=== PATIENT | male | born 1970 | race Caucasian/White ===

== ENCOUNTER 2018-10-28 17:33 | Inpatient (IN) | payer OTHER ==
[2018-10-28] MEDS ORDERED: NACL 0.9% 3 ML SYG IV (18:30)
[2018-10-28] MEDS ORDERED: ONDANSETRON 4 MG INJ IV (18:30)
[2018-10-28] MEDS ORDERED: ACETAMINOPHEN 325 MG TAB PO (18:30)
[2018-10-28] MEDS: PIPER-TAZO 3.375 GM IV (PMX) 100 ML IVPB (18:46)
[2018-10-28] MEDS ORDERED: GLUCOSE GEL 15 GRAM TUBE BUCCAL (19:00)
[2018-10-28] MEDS ORDERED: GLUCOSE GEL 15 GRAM TUBE PO ×2 (19:00)
[2018-10-28] MEDS ORDERED: DEXTROSE 50% 50 ML SYRINGE IV ×2 (19:00)
[2018-10-28] MEDS ORDERED: VANCOMYCIN IV PER PHARMACY XX (19:00)
[2018-10-28] MEDS ORDERED: ALBUTEROL/IPRATROPIUM (NEB) 3 ML AMP HHN (19:00)
[2018-10-28] MEDS ORDERED: GLUCAGON 1 MG INJ IM (19:00)
[2018-10-28] MEDS: morphine 4 MG/ML VIAL IV (20:18)
[2018-10-28] MEDS: VANCOMYCIN 2 GM in SOD CHLORIDE 0.9% 500 ML IVPB (20:45)
[2018-10-28] MEDS: ATORVASTATIN 40 MG TAB PO (20:45)
[2018-10-28] MEDS: ZIPRASIDONE 20 MG CAP PO (20:45)
[2018-10-28] MEDS: NICOTINE (21 MG/24 HR) PATCH TRANSDERM (22:12)
[2018-10-28] MEDS: INSULIN ASPART [NOVOLOG] 3 ML PEN SC (22:17)
[2018-10-28] MEDS: INSULIN GLARGINE [LANTus] (100 UNITS/ML) SYG SC (22:18)
[2018-10-29] MEDS: PIPER-TAZO 3.375 GM IV (PMX) 100 ML IVPB ×4 (00:31→17:27)
[2018-10-29] MEDS: ACCU-CHEK XX (02:00)
[2018-10-29 06:03] LABS: ADD MAN DIFF? NO
[2018-10-29 06:21] LABS: WHITE BLOOD COUNT 7.4 10^3/ul (4.8-10.8)
[2018-10-29 06:21] LABS: BASOPHIL # 0.1 10^3/ul (0.0-0.1); BASOPHILS % 1.2 % (0.0-2.0); EOSINOPHILS # 0.2 10^3/ul (0.0-0.5); EOSINOPHILS % 3.3 % (0.0-7.0); HEMATOCRIT 42.3 % (42.0-52.0); HEMOGLOBIN 13.1 g/dl (14.0-18.0); LYMPHOCYTES # 2.5 10^3/ul (0.8-2.9); LYMPHOCYTES % 34.3 % (15.0-51.0); MEAN PLATELET VOLUME 9.5 fl (7.4-10.4); MONOCYTE # 0.6 10^3/ul (0.3-0.9); MONOCYTES % 7.6 % (0.0-11.0); NEUTROPHIL # 3.8 10^3/ul (1.6-7.5); NEUTROPHILS % 51.7 % (39.0-77.0); PLATELET COUNT 341 10^3/UL (140-415); RED BLOOD COUNT 4.86 10^6/ul (4.70-6.10); RED CELL DISTRIBUTION WIDTH 13.9 % (11.5-14.5)
[2018-10-29 06:51] LABS: ALANINE AMINOTRANSFERASE 20 IU/L (13-69); ALBUMIN 3.5 g/dl (3.3-4.9); ALBUMIN/GLOBULIN RATIO 1.06; ALKALINE PHOSPHATASE 117 IU/L (42-121); ANION GAP 7 (5-13); ASPARTATE AMINO TRANSFERASE 21 IU/L (15-46); BILIRUBIN,INDIRECT 0.2 mg/dl (0-1.1); BILIRUBIN,TOTAL 0.2 mg/dl (0.2-1.3); BLOOD UREA NITROGEN 29 mg/dl (7-20); CALCIUM 9.3 mg/dl (8.4-10.2); CARBON DIOXIDE 39 mmol/L (21-31); CHLORIDE 92 mmol/L (97-110); CHOLESTEROL 163 mg/dl (100-200); CREATININE 1.28 mg/dl (0.61-1.24); Estimated GFR 60 mL/min (>60); GLUCOSE 316 mg/dl (70-220); HDL CHOLESTEROL 27 mg/dl (27-67); LDL CHOLESTEROL,CALCULATED 70 mg/dl; MAGNESIUM 1.8 mg/dl (1.7-2.5); PHOSPHORUS 5.8 mg/dl (2.5-4.9); POTASSIUM 4.9 mmol/L (3.5-5.1); SODIUM 138 mmol/L (135-144); TOTAL PROTEIN 6.8 g/dl (6.1-8.1); TRIGLYCERIDES 332 mg/dl (0-149)
[2018-10-29 07:06] LABS: HEMOGLOBIN A1C 13.4 % (0-5.9)
[2018-10-29] MEDS: INSULIN ASPART [NOVOLOG] 3 ML PEN SC ×5 (08:26→20:37)
[2018-10-29] MEDS: ENOXAPARIN 30 MG/0.3 ML SYG SC (08:27)
[2018-10-29] MEDS: INSULIN GLARGINE [LANTus] (100 UNITS/ML) SYG SC ×2 (08:27→20:38)
[2018-10-29] MEDS: TIOTROPIUM 18 MCG CAPSULE INHA DEV INH (08:28)
[2018-10-29] MEDS: LOSARTAN 50 MG TAB PO (08:28)
[2018-10-29] MEDS: NICOTINE (21 MG/24 HR) PATCH TRANSDERM (08:29)
[2018-10-29] MEDS: ZIPRASIDONE 20 MG CAP PO ×2 (08:31→20:34)
[2018-10-29] MEDS: VANCOMYCIN 2 GM in SOD CHLORIDE 0.9% 500 ML IVPB ×2 (08:31→20:32)
[2018-10-29] MEDS: SODIUM HYPOCHLORITE (1/40) 1 APPLIC BTL IRR (08:48)
[2018-10-29] MEDS: INFLUENZA VIRUS VACCINE 0.5 ML (DISPENSING) IM* (09:00)
[2018-10-29] MEDS: HYDROCHLOROTHIAZIDE 12.5 MG CAP PO (09:27)
[2018-10-29] MEDS ORDERED: GUAIFENESIN 20 MG/ML 5ML CUP PO (11:30)
[2018-10-29 13:28] LABS: C-REACTIVE PROTEIN < 0.5 mg/dl (0.0-0.9)
[2018-10-29 14:19] LABS: ERYTHROCYTE SEDIMENTATION RATE 32 mm/Hr (0-15)
[2018-10-29] MEDS: ATORVASTATIN 40 MG TAB PO (20:33)
[2018-10-30] MEDS: PIPER-TAZO 3.375 GM IV (PMX) 100 ML IVPB ×5 (00:11→23:24)
[2018-10-30] MEDS: ACCU-CHEK XX (02:14)
[2018-10-30 05:12] LABS: ADD MAN DIFF? NO
[2018-10-30 05:16] LABS: WHITE BLOOD COUNT 8.6 10^3/ul (4.8-10.8)
[2018-10-30 05:16] LABS: BASOPHIL # 0.1 10^3/ul (0.0-0.1); BASOPHILS % 1.4 % (0.0-2.0); EOSINOPHILS # 0.4 10^3/ul (0.0-0.5); EOSINOPHILS % 4.1 % (0.0-7.0); HEMATOCRIT 43.4 % (42.0-52.0); HEMOGLOBIN 13.7 g/dl (14.0-18.0); LYMPHOCYTES # 3.1 10^3/ul (0.8-2.9); LYMPHOCYTES % 35.5 % (15.0-51.0); MEAN CORPUSCULAR HEMOGLOBIN 27.2 pg (29.0-33.0); MEAN CORPUSCULAR HGB CONC 31.6 g/dl (32.0-37.0); MEAN CORPUSCULAR VOLUME 86.1 fl (82.0-101.0); MEAN PLATELET VOLUME 9.4 fl (7.4-10.4); MONOCYTE # 0.7 10^3/ul (0.3-0.9); NEUTROPHIL # 4.2 10^3/ul (1.6-7.5); NEUTROPHILS % 48.1 % (39.0-77.0); PLATELET COUNT 334 10^3/UL (140-415); RED BLOOD COUNT 5.04 10^6/ul (4.70-6.10); RED CELL DISTRIBUTION WIDTH 14.3 % (11.5-14.5)
[2018-10-30 05:48] LABS: ANION GAP 8 (5-13); BLOOD UREA NITROGEN 22 mg/dl (7-20); CALCIUM 9.3 mg/dl (8.4-10.2); CARBON DIOXIDE 37 mmol/L (21-31); CHLORIDE 97 mmol/L (97-110); CREATININE 1.26 mg/dl (0.61-1.24); Estimated GFR > 60 mL/min (>60); GLUCOSE 135 mg/dl (70-220); MAGNESIUM 1.9 mg/dl (1.7-2.5); PHOSPHORUS 5.3 mg/dl (2.5-4.9); POTASSIUM 4.5 mmol/L (3.5-5.1); SODIUM 142 mmol/L (135-144)
[2018-10-30 07:50] LABS: VANCOMYCIN,TROUGH 22.2 ug/ml (10.0-20.0)
[2018-10-30] MEDS: INSULIN ASPART [NOVOLOG] 3 ML PEN SC ×7 (08:33→21:27)
[2018-10-30] MEDS: NICOTINE (21 MG/24 HR) PATCH TRANSDERM (08:50)
[2018-10-30] MEDS: TIOTROPIUM 18 MCG CAPSULE INHA DEV INH (08:51)
[2018-10-30] MEDS: HYDROCHLOROTHIAZIDE 12.5 MG CAP PO (08:55)
[2018-10-30] MEDS: LOSARTAN 50 MG TAB PO (08:55)
[2018-10-30] MEDS: SODIUM HYPOCHLORITE (1/40) 1 APPLIC BTL IRR (08:57)
[2018-10-30] MEDS: ZIPRASIDONE 20 MG CAP PO ×3 (09:00→21:28)
[2018-10-30] MEDS: INSULIN GLARGINE [LANTus] (100 UNITS/ML) SYG SC ×2 (09:16→21:24)
[2018-10-30] MEDS: ENOXAPARIN 30 MG/0.3 ML SYG SC (09:16)
[2018-10-30] MEDS: VANCOMYCIN 1.25 GM in SOD CHLORIDE 0.9% 250 ML IVPB (18:36)
[2018-10-30] MEDS: ATORVASTATIN 40 MG TAB PO (21:37)
[2018-10-31] MEDS: ACCU-CHEK XX ×2 (02:00→21:41)
[2018-10-31] MEDS: HYDROCODONE/APAP (5/325) TAB PO ×2 (02:20→02:23)
[2018-10-31] MEDS: PIPER-TAZO 3.375 GM IV (PMX) 100 ML IVPB ×3 (05:42→17:31)
[2018-10-31 06:13] LABS: ADD MAN DIFF? NO
[2018-10-31 06:19] LABS: BASOPHIL # 0.1 10^3/ul (0.0-0.1); BASOPHILS % 1.2 % (0.0-2.0); EOSINOPHILS # 0.3 10^3/ul (0.0-0.5); EOSINOPHILS % 3.4 % (0.0-7.0); HEMATOCRIT 45.3 % (42.0-52.0); HEMOGLOBIN 13.9 g/dl (14.0-18.0); LYMPHOCYTES % 34.9 % (15.0-51.0); MEAN CORPUSCULAR HEMOGLOBIN 27.2 pg (29.0-33.0); MEAN CORPUSCULAR HGB CONC 30.7 g/dl (32.0-37.0); MEAN CORPUSCULAR VOLUME 88.6 fl (82.0-101.0); MEAN PLATELET VOLUME 9.4 fl (7.4-10.4); MONOCYTE # 0.7 10^3/ul (0.3-0.9); MONOCYTES % 7.8 % (0.0-11.0); NEUTROPHIL # 4.4 10^3/ul (1.6-7.5); NEUTROPHILS % 50.8 % (39.0-77.0); PLATELET COUNT 364 10^3/UL (140-415); RED BLOOD COUNT 5.11 10^6/ul (4.70-6.10); RED CELL DISTRIBUTION WIDTH 14.1 % (11.5-14.5)
[2018-10-31 06:19] LABS: WHITE BLOOD COUNT 8.6 10^3/ul (4.8-10.8)
[2018-10-31] MEDS: VANCOMYCIN 1.25 GM in SOD CHLORIDE 0.9% 250 ML IVPB ×2 (06:49→17:31)
[2018-10-31 06:57] LABS: BLOOD UREA NITROGEN 20 mg/dl (7-20); Estimated GFR 59 mL/min (>60); GLUCOSE 200 mg/dl (70-220); POTASSIUM 4.4 mmol/L (3.5-5.1)
[2018-10-31 07:27] LABS: ANION GAP 6 (5-13); CALCIUM 9.4 mg/dl (8.4-10.2); CARBON DIOXIDE 32 mmol/L (21-31); CHLORIDE 102 mmol/L (97-110); SODIUM 140 mmol/L (135-144)
[2018-10-31] MEDS: INSULIN ASPART [NOVOLOG] 3 ML PEN SC ×7 (08:29→21:00)
[2018-10-31] MEDS: INSULIN GLARGINE [LANTus] (100 UNITS/ML) SYG SC ×2 (08:30→21:38)
[2018-10-31] MEDS: ZIPRASIDONE 20 MG CAP PO ×2 (09:00→21:00)
[2018-10-31] MEDS: SODIUM HYPOCHLORITE (1/40) 1 APPLIC BTL IRR (09:00)
[2018-10-31] MEDS: NICOTINE (21 MG/24 HR) PATCH TRANSDERM (09:42)
[2018-10-31] MEDS: ENOXAPARIN 30 MG/0.3 ML SYG SC (09:42)
[2018-10-31] MEDS: LOSARTAN 50 MG TAB PO (09:48)
[2018-10-31] MEDS: HYDROCHLOROTHIAZIDE 12.5 MG CAP PO (09:49)
[2018-10-31] MEDS: TIOTROPIUM 18 MCG CAPSULE INHA DEV INH (09:52)
[2018-10-31] MEDS: ATORVASTATIN 40 MG TAB PO (21:00)
[2018-11-01] MEDS: PIPER-TAZO 3.375 GM IV (PMX) 100 ML IVPB ×3 (00:18→12:28)
[2018-11-01 06:38] LABS: ADD MAN DIFF? NO
[2018-11-01 06:45] LABS: BASOPHIL # 0.1 10^3/ul (0.0-0.1); BASOPHILS % 0.9 % (0.0-2.0); EOSINOPHILS # 0.3 10^3/ul (0.0-0.5); EOSINOPHILS % 3.3 % (0.0-7.0); HEMATOCRIT 43.8 % (42.0-52.0); HEMOGLOBIN 13.8 g/dl (14.0-18.0); LYMPHOCYTES # 2.6 10^3/ul (0.8-2.9); LYMPHOCYTES % 31.3 % (15.0-51.0); MEAN CORPUSCULAR HEMOGLOBIN 27.4 pg (29.0-33.0); MEAN CORPUSCULAR HGB CONC 31.5 g/dl (32.0-37.0); MEAN CORPUSCULAR VOLUME 86.9 fl (82.0-101.0); MEAN PLATELET VOLUME 9.4 fl (7.4-10.4); MONOCYTE # 0.6 10^3/ul (0.3-0.9); MONOCYTES % 7.3 % (0.0-11.0); NEUTROPHIL # 4.6 10^3/ul (1.6-7.5); NEUTROPHILS % 55.4 % (39.0-77.0); PLATELET COUNT 331 10^3/UL (140-415); RED BLOOD COUNT 5.04 10^6/ul (4.70-6.10); RED CELL DISTRIBUTION WIDTH 14.5 % (11.5-14.5)
[2018-11-01 06:45] LABS: WHITE BLOOD COUNT 8.2 10^3/ul (4.8-10.8)
[2018-11-01 07:16] LABS: ANION GAP 6 (5-13); BLOOD UREA NITROGEN 17 mg/dl (7-20); CALCIUM 9.4 mg/dl (8.4-10.2); CARBON DIOXIDE 36 mmol/L (21-31); CHLORIDE 101 mmol/L (97-110); CREATININE 1.32 mg/dl (0.61-1.24); Estimated GFR 58 mL/min (>60); GLUCOSE 115 mg/dl (70-220); MAGNESIUM 1.9 mg/dl (1.7-2.5); PHOSPHORUS 5.2 mg/dl (2.5-4.9); POTASSIUM 4.7 mmol/L (3.5-5.1); SODIUM 143 mmol/L (135-144)
[2018-11-01] MEDS: INSULIN ASPART [NOVOLOG] 3 ML PEN SC ×4 (08:00→12:32)
[2018-11-01] MEDS: SODIUM HYPOCHLORITE (1/40) 1 APPLIC BTL IRR (08:25)
[2018-11-01] MEDS: TIOTROPIUM 18 MCG CAPSULE INHA DEV INH (08:27)
[2018-11-01] MEDS: HYDROCHLOROTHIAZIDE 12.5 MG CAP PO (08:28)
[2018-11-01] MEDS: LOSARTAN 50 MG TAB PO (08:28)
[2018-11-01] MEDS: NICOTINE (21 MG/24 HR) PATCH TRANSDERM (08:29)
[2018-11-01] MEDS: INSULIN GLARGINE [LANTus] (100 UNITS/ML) SYG SC (08:30)
[2018-11-01] MEDS: ENOXAPARIN 30 MG/0.3 ML SYG SC (08:31)
[2018-11-01] MEDS: ZIPRASIDONE 20 MG CAP PO (08:31)
[2018-11-01] MEDS: VANCOMYCIN 1.25 GM in SOD CHLORIDE 0.9% 250 ML IVPB (10:21)
[2018-11-01] MEDS ORDERED: VANCOMYCIN 1.25 GM in SOD CHLORIDE 0.9% 250 ML IVPB (23:00)
== END 2018-11-01 16:10 | disposition home or self-care (01) | DRG 623 ==
LOC: 2NE 17:33
PROVIDERS: Internal Medicine
PROC: 0JBQ0ZZ Excision of Right Foot Subcutaneous Tissue and Fascia, Open Approach (ICD-10-PCS; principal; 2018-10-28)
PROC: 0JBR0ZZ Excision of Left Foot Subcutaneous Tissue and Fascia, Open Approach (ICD-10-PCS; 2018-10-28)
DX: E11.621 Type 2 diabetes mellitus with foot ulcer (principal); L03.115 Cellulitis of right lower limb; R05 Cough; E11.65 Type 2 diabetes mellitus with hyperglycemia; I10 Essential (primary) hypertension; F20.9 Schizophrenia, unspecified; F17.200 Nicotine dependence, unspecified, uncomplicated; J44.9 Chronic obstructive pulmonary disease, unspecified; B35.1 Tinea unguium; E11.42 Type 2 diabetes mellitus with diabetic polyneuropathy; Z89.411 Acquired absence of right great toe; Z89.422 Acquired absence of other left toe(s)
CPT/HCPCS: 71045; 73630; 73630-LT; 80048; 80053; 80061; 80202; 82962; 83036; 83735; 84100; 84443; 85025; 85651; 86140; 87040; 87070; 87081; 93922; 93970

== ENCOUNTER 2019-06-23 11:05 | Inpatient (IN) | payer OTHER ==
[2019-06-23 12:08] LABS: ADD MAN DIFF? NO
[2019-06-23] MEDS: SODIUM CHLORIDE 0.9% 1L BAG IV* (12:12)
[2019-06-23 12:19] LABS: WHITE BLOOD COUNT 6.9 10^3/ul (4.8-10.8)
[2019-06-23 12:19] LABS: BASOPHIL # 0.1 10^3/ul (0.0-0.1); EOSINOPHILS # 0.2 10^3/ul (0.0-0.5); EOSINOPHILS % 2.8 % (0.0-7.0); HEMATOCRIT 41.7 % (42.0-52.0); HEMOGLOBIN 13.1 g/dl (14.0-18.0); LYMPHOCYTES # 2.1 10^3/ul (0.8-2.9); LYMPHOCYTES % 30.2 % (15.0-51.0); MEAN CORPUSCULAR HEMOGLOBIN 26.4 pg (29.0-33.0); MEAN CORPUSCULAR HGB CONC 31.4 g/dl (32.0-37.0); MEAN CORPUSCULAR VOLUME 84.1 fl (82.0-101.0); MEAN PLATELET VOLUME 9.7 fl (7.4-10.4); MONOCYTE # 0.5 10^3/ul (0.3-0.9); MONOCYTES % 7.1 % (0.0-11.0); NEUTROPHILS % 58.2 % (39.0-77.0); PLATELET COUNT 305 10^3/UL (140-415); RED BLOOD COUNT 4.96 10^6/ul (4.70-6.10); RED CELL DISTRIBUTION WIDTH 13.4 % (11.5-14.5)
[2019-06-23 12:29] LABS: INR 0.88; PT RATIO 0.9
[2019-06-23 12:30] LABS: PARTIAL THROMBOPLASTIN TIME 24.6 Sec (23.0-35.0)
[2019-06-23 12:49] LABS: ALANINE AMINOTRANSFERASE 23 IU/L (13-69); ALBUMIN 3.8 g/dl (3.3-4.9); ALBUMIN/GLOBULIN RATIO 1.11; ALKALINE PHOSPHATASE 123 IU/L (42-121); ANION GAP 10 (5-13); ASPARTATE AMINO TRANSFERASE 21 IU/L (15-46); BILIRUBIN,INDIRECT 0.4 mg/dl (0-1.1); BILIRUBIN,TOTAL 0.4 mg/dl (0.2-1.3); BLOOD UREA NITROGEN 28 mg/dl (7-20); C-REACTIVE PROTEIN 0.8 mg/dl (0.0-0.9); CALCIUM 9.5 mg/dl (8.4-10.2); CARBON DIOXIDE 31 mmol/L (21-31); CHLORIDE 91 mmol/L (97-110); CREATININE 0.99 mg/dl (0.61-1.24); Estimated GFR > 60 mL/min (>60); SODIUM 132 mmol/L (135-144); TOTAL PROTEIN 7.2 g/dl (6.1-8.1)
[2019-06-23 12:50] LABS: GLUCOSE 472 mg/dl (70-220)
[2019-06-23 12:55] LABS: TROPONIN-I < 0.012 ng/ml (0.000-0.120)
[2019-06-23 13:35] LABS: ERYTHROCYTE SEDIMENTATION RATE 41 mm/Hr (0-15)
[2019-06-23] MEDS: PIPER-TAZO 3.375 GM IV (PMX) 100 ML IVPB ×2 (13:58→20:37)
[2019-06-23] MEDS ORDERED: ONDANSETRON 4 MG INJ IV ×2 (14:00→16:00)
[2019-06-23] MEDS ORDERED: ACETAMINOPHEN 325 MG TAB PO (14:00)
[2019-06-23 14:24] LABS: ADD UMIC NO; UR ASCORBIC ACID NEGATIVE (NEGATIVE); UR BILIRUBIN (Dip) NEGATIVE (NEGATIVE); UR BLOOD (Dip) NEGATIVE (NEGATIVE); UR CLARITY CLEAR (CLEAR); UR COLOR STRAW (YELLOW); UR GLUCOSE (Dip) 3+ mg/dL (NEGATIVE); UR KETONES (Dip) NEGATIVE (NEGATIVE); UR LEUKOCYTE ESTERASE (Dip) NEGATIVE Leu/ul (NEGATIVE); UR NITRITE (Dip) NEGATIVE (NEGATIVE); UR SPECIFIC GRAVITY (Dip) 1.024 (1.003-1.030); UR TOTAL PROTEIN (Dip) NEGATIVE (NEGATIVE); UR UROBILINOGEN (Dip) NEGATIVE (NEGATIVE)
[2019-06-23 14:26] LABS: LACTIC ACID 1.7 mmol/L (0.5-2.0)
[2019-06-23] MEDS ORDERED: GLUCOSE GEL 15 GRAM TUBE PO ×4 (14:30→16:00)
[2019-06-23] MEDS: ACCU-CHEK XX (14:30)
[2019-06-23] MEDS ORDERED: GLUCOSE GEL 15 GRAM TUBE BUCCAL ×2 (14:30→16:00)
[2019-06-23] MEDS ORDERED: DEXTROSE 50% 50 ML SYRINGE IV ×4 (14:30→16:00)
[2019-06-23] MEDS ORDERED: GLUCAGON 1 MG INJ IM ×2 (14:30→16:00)
[2019-06-23] MEDS: VANCOMYCIN 1 GM (PMX) 250 ML IVPB (14:42)
[2019-06-23] MEDS: INSULIN ASPART [NOVOLOG] 3 ML PEN SC ×2 (15:09→21:39)
[2019-06-23] MEDS ORDERED: NACL 0.9% 3 ML SYG IV (16:00)
[2019-06-23 16:40] LABS: LACTIC ACID 2.4 mmol/L (0.5-2.0)
[2019-06-23] MEDS: NICOTINE (21 MG/24 HR) PATCH TRANSDERM (17:55)
[2019-06-23] MEDS: ATORVASTATIN 40 MG TAB PO (20:36)
[2019-06-23] MEDS: HYDROCODONE/APAP (5/325) TAB PO (20:37)
[2019-06-23] MEDS: INSULIN GLARGINE [LANTus] (100 UNITS/ML) SYG SC (21:40)
[2019-06-24] MEDS: PIPER-TAZO 3.375 GM IV (PMX) 100 ML IVPB ×4 (00:39→18:06)
[2019-06-24] MEDS: ACCU-CHEK XX (02:00)
[2019-06-24 05:47] LABS: ADD MAN DIFF? NO
[2019-06-24 05:54] LABS: BASOPHIL # 0.1 10^3/ul (0.0-0.1); BASOPHILS % 1.1 % (0.0-2.0); EOSINOPHILS # 0.3 10^3/ul (0.0-0.5); EOSINOPHILS % 5.2 % (0.0-7.0); HEMATOCRIT 39.1 % (42.0-52.0); HEMOGLOBIN 12.3 g/dl (14.0-18.0); LYMPHOCYTES # 2.3 10^3/ul (0.8-2.9); LYMPHOCYTES % 35.3 % (15.0-51.0); MEAN CORPUSCULAR HGB CONC 31.5 g/dl (32.0-37.0); MEAN CORPUSCULAR VOLUME 85.7 fl (82.0-101.0); MONOCYTE # 0.5 10^3/ul (0.3-0.9); MONOCYTES % 7.4 % (0.0-11.0); NEUTROPHIL # 3.2 10^3/ul (1.6-7.5); NEUTROPHILS % 50.2 % (39.0-77.0); PLATELET COUNT 293 10^3/UL (140-415); RED BLOOD COUNT 4.56 10^6/ul (4.70-6.10); RED CELL DISTRIBUTION WIDTH 13.7 % (11.5-14.5)
[2019-06-24 05:54] LABS: WHITE BLOOD COUNT 6.4 10^3/ul (4.8-10.8)
[2019-06-24 06:34] LABS: ALANINE AMINOTRANSFERASE 24 IU/L (13-69); ALKALINE PHOSPHATASE 83 IU/L (42-121); ANION GAP 4 (5-13); ASPARTATE AMINO TRANSFERASE 28 IU/L (15-46); BILIRUBIN,INDIRECT 0.3 mg/dl (0-1.1); BILIRUBIN,TOTAL 0.3 mg/dl (0.2-1.3); BLOOD UREA NITROGEN 21 mg/dl (7-20); CALCIUM 8.7 mg/dl (8.4-10.2); CARBON DIOXIDE 31 mmol/L (21-31); CHLORIDE 102 mmol/L (97-110); CREATININE 1.05 mg/dl (0.61-1.24); Estimated GFR > 60 mL/min (>60); GLUCOSE 148 mg/dl (70-220); MAGNESIUM 1.7 mg/dl (1.7-2.5); PHOSPHORUS 4.8 mg/dl (2.5-4.9); SODIUM 137 mmol/L (135-144)
[2019-06-24 06:35] LABS: ALBUMIN 2.9 g/dl (3.3-4.9); CHOLESTEROL 258 mg/dl (100-200); HDL CHOLESTEROL 32 mg/dl (27-67); LDL CHOLESTEROL,CALCULATED 150 mg/dl; TOTAL PROTEIN 6.1 g/dl (6.1-8.1); TRIGLYCERIDES 378 mg/dl (0-149)
[2019-06-24] MEDS: INSULIN ASPART [NOVOLOG] 3 ML PEN SC ×9 (08:00→21:00)
[2019-06-24] MEDS: LOSARTAN 50 MG TAB PO (08:30)
[2019-06-24] MEDS: HYDROCHLOROTHIAZIDE 12.5 MG CAP PO (08:30)
[2019-06-24] MEDS: INSULIN GLARGINE [LANTus] (100 UNITS/ML) SYG SC ×2 (08:32→21:31)
[2019-06-24] MEDS: NICOTINE (21 MG/24 HR) PATCH TRANSDERM (08:33)
[2019-06-24] MEDS: ENOXAPARIN 40 MG/0.4 ML SYG SC (08:33)
[2019-06-24] MEDS: TIOTROPIUM 18 MCG CAPSULE INHA DEV INH (08:35)
[2019-06-24] MEDS: ATORVASTATIN 40 MG TAB PO (21:24)
[2019-06-25] MEDS: PIPER-TAZO 3.375 GM IV (PMX) 100 ML IVPB ×4 (01:11→18:13)
[2019-06-25] MEDS: ACCU-CHEK XX (02:00)
[2019-06-25] MEDS: INSULIN ASPART [NOVOLOG] 3 ML PEN SC ×7 (08:00→21:00)
[2019-06-25] MEDS: TIOTROPIUM 18 MCG CAPSULE INHA DEV INH (08:48)
[2019-06-25] MEDS: HYDROCHLOROTHIAZIDE 12.5 MG CAP PO (08:49)
[2019-06-25] MEDS: LOSARTAN 50 MG TAB PO (08:50)
[2019-06-25] MEDS: NICOTINE (21 MG/24 HR) PATCH TRANSDERM (08:50)
[2019-06-25] MEDS: ENOXAPARIN 40 MG/0.4 ML SYG SC (08:53)
[2019-06-25] MEDS: INSULIN GLARGINE [LANTus] (100 UNITS/ML) SYG SC ×2 (08:54→21:41)
[2019-06-25] MEDS: ATORVASTATIN 40 MG TAB PO (21:36)
[2019-06-26] MEDS: PIPER-TAZO 3.375 GM IV (PMX) 100 ML IVPB ×5 (00:11→23:30)
[2019-06-26] MEDS: ACETAMINOPHEN 325 MG TAB PO ×2 (00:21→23:55)
[2019-06-26] MEDS: ACCU-CHEK XX (02:00)
[2019-06-26 06:29] LABS: ADD MAN DIFF? NO
[2019-06-26 06:33] LABS: WHITE BLOOD COUNT 6.9 10^3/ul (4.8-10.8)
[2019-06-26 06:33] LABS: BASOPHIL # 0.1 10^3/ul (0.0-0.1); BASOPHILS % 0.9 % (0.0-2.0); EOSINOPHILS # 0.3 10^3/ul (0.0-0.5); EOSINOPHILS % 3.8 % (0.0-7.0); HEMATOCRIT 42.9 % (42.0-52.0); HEMOGLOBIN 13.5 g/dl (14.0-18.0); LYMPHOCYTES # 2.6 10^3/ul (0.8-2.9); LYMPHOCYTES % 38.1 % (15.0-51.0); MEAN CORPUSCULAR HEMOGLOBIN 26.9 pg (29.0-33.0); MEAN CORPUSCULAR HGB CONC 31.5 g/dl (32.0-37.0); MEAN CORPUSCULAR VOLUME 85.6 fl (82.0-101.0); MEAN PLATELET VOLUME 9.5 fl (7.4-10.4); MONOCYTE # 0.5 10^3/ul (0.3-0.9); MONOCYTES % 7.8 % (0.0-11.0); NEUTROPHIL # 3.4 10^3/ul (1.6-7.5); PLATELET COUNT 336 10^3/UL (140-415); RED BLOOD COUNT 5.01 10^6/ul (4.70-6.10); RED CELL DISTRIBUTION WIDTH 13.7 % (11.5-14.5)
[2019-06-26 06:56] LABS: ANION GAP 5 (5-13); BLOOD UREA NITROGEN 17 mg/dl (7-20); CALCIUM 9.3 mg/dl (8.4-10.2); CARBON DIOXIDE 30 mmol/L (21-31); CHLORIDE 103 mmol/L (97-110); CREATININE 1.19 mg/dl (0.61-1.24); Estimated GFR > 60 mL/min (>60); GLUCOSE 142 mg/dl (70-220); MAGNESIUM 1.7 mg/dl (1.7-2.5); PHOSPHORUS 4.6 mg/dl (2.5-4.9); POTASSIUM 3.7 mmol/L (3.5-5.1); SODIUM 138 mmol/L (135-144)
[2019-06-26] MEDS: INSULIN ASPART [NOVOLOG] 3 ML PEN SC ×7 (08:00→21:00)
[2019-06-26] MEDS: NICOTINE (21 MG/24 HR) PATCH TRANSDERM (08:28)
[2019-06-26] MEDS: LOSARTAN 50 MG TAB PO (08:29)
[2019-06-26] MEDS: HYDROCHLOROTHIAZIDE 12.5 MG CAP PO (08:29)
[2019-06-26] MEDS: INSULIN GLARGINE [LANTus] (100 UNITS/ML) SYG SC ×2 (08:37→20:44)
[2019-06-26] MEDS: ENOXAPARIN 40 MG/0.4 ML SYG SC (08:37)
[2019-06-26] MEDS: TIOTROPIUM 18 MCG CAPSULE INHA DEV INH (08:39)
[2019-06-26] MEDS: ATORVASTATIN 40 MG TAB PO (20:40)
[2019-06-27] MEDS: ACCU-CHEK XX (02:00)
[2019-06-27] MEDS: PIPER-TAZO 3.375 GM IV (PMX) 100 ML IVPB ×4 (05:38→23:56)
[2019-06-27 06:25] LABS: ADD MAN DIFF? NO
[2019-06-27 06:30] LABS: BASOPHIL # 0.1 10^3/ul (0.0-0.1); BASOPHILS % 0.9 % (0.0-2.0); EOSINOPHILS # 0.3 10^3/ul (0.0-0.5); EOSINOPHILS % 4.1 % (0.0-7.0); HEMATOCRIT 44.4 % (42.0-52.0); HEMOGLOBIN 13.6 g/dl (14.0-18.0); LYMPHOCYTES # 2.5 10^3/ul (0.8-2.9); LYMPHOCYTES % 36.8 % (15.0-51.0); MEAN CORPUSCULAR HEMOGLOBIN 26.6 pg (29.0-33.0); MEAN CORPUSCULAR HGB CONC 30.6 g/dl (32.0-37.0); MEAN CORPUSCULAR VOLUME 86.7 fl (82.0-101.0); MEAN PLATELET VOLUME 9.5 fl (7.4-10.4); MONOCYTE # 0.5 10^3/ul (0.3-0.9); NEUTROPHIL # 3.4 10^3/ul (1.6-7.5); NEUTROPHILS % 49.6 % (39.0-77.0); PLATELET COUNT 338 10^3/UL (140-415); RED BLOOD COUNT 5.12 10^6/ul (4.70-6.10); RED CELL DISTRIBUTION WIDTH 13.8 % (11.5-14.5)
[2019-06-27 06:30] LABS: WHITE BLOOD COUNT 6.8 10^3/ul (4.8-10.8)
[2019-06-27 07:03] LABS: ANION GAP 7 (5-13); BLOOD UREA NITROGEN 19 mg/dl (7-20); CALCIUM 8.9 mg/dl (8.4-10.2); CARBON DIOXIDE 27 mmol/L (21-31); CHLORIDE 103 mmol/L (97-110); Estimated GFR 59 mL/min (>60); GLUCOSE 109 mg/dl (70-220); POTASSIUM 4.2 mmol/L (3.5-5.1); SODIUM 137 mmol/L (135-144)
[2019-06-27] MEDS ORDERED: LIDOCAINE 2% (SDV) 5 ML INJ (07:45)
[2019-06-27] MEDS ORDERED: PROPOFOL 20 ML (07:45)
[2019-06-27] MEDS ORDERED: SEVOFLURANE 15 MIN (07:45)
[2019-06-27] MEDS ORDERED: MIDAZOLAM 1 MG/ML 2 ML INJ (07:46)
[2019-06-27] MEDS ORDERED: FENTAnyl 50 MCG/ML VIAL (07:46)
[2019-06-27] MEDS ORDERED: EPHEDrine 25 MG/5 ML SYG (08:38)
[2019-06-27] MEDS ORDERED: POLYMYXIN/BACITRACIN 1L IRRIG (08:53)
[2019-06-27] MEDS ORDERED: hydrALAzine 20 MG INJ IV (09:00)
[2019-06-27] MEDS: TIOTROPIUM 18 MCG CAPSULE INHA DEV INH (09:00)
[2019-06-27] MEDS ORDERED: FENTAnyl 50 MCG/ML VIAL IV ×3 (09:00)
[2019-06-27] MEDS ORDERED: EPHEDrine 25 MG/5 ML SYG IV (09:00)
[2019-06-27] MEDS: ENOXAPARIN 40 MG/0.4 ML SYG SC (09:00)
[2019-06-27] MEDS: NICOTINE (21 MG/24 HR) PATCH TRANSDERM (09:00)
[2019-06-27] MEDS ORDERED: MIDAZOLAM 1 MG/ML 2 ML INJ IV (09:00)
[2019-06-27] MEDS ORDERED: HYDROmorphONE 1 MG/5 ML IV SYRINGE IV ×3 (09:00)
[2019-06-27] MEDS ORDERED: ONDANSETRON 4 MG INJ IV (09:00)
[2019-06-27] MEDS ORDERED: LABETALOL HCL 20MG INJ IV (09:00)
[2019-06-27] MEDS ORDERED: DIPHENHYDRAMINE 50 MG INJ IV (09:00)
[2019-06-27] MEDS: TOBRAMYCIN 1.2 GM POWDER (09:06)
[2019-06-27] MEDS: VANCOMYCIN 1 GM INJ (09:06)
[2019-06-27] MEDS: LIDOCAINE 1% (MPF) 30 ML INJ (09:09)
[2019-06-27] MEDS: METOCLOPRAMIDE 10 MG INJ IV (09:43)
[2019-06-27] MEDS: MEPERIDINE 25 MG INJ IV (09:43)
[2019-06-27] MEDS: HYDROCHLOROTHIAZIDE 12.5 MG CAP PO (11:11)
[2019-06-27] MEDS: LOSARTAN 50 MG TAB PO (11:11)
[2019-06-27] MEDS: INSULIN GLARGINE [LANTus] (100 UNITS/ML) SYG SC ×2 (11:14→21:37)
[2019-06-27] MEDS: INSULIN ASPART [NOVOLOG] 3 ML PEN SC ×7 (11:15→21:00)
[2019-06-27] MEDS: SOD CHLORIDE 0.9% 1,000 ML IV (16:17)
[2019-06-27] MEDS: ACETAMINOPHEN 325 MG TAB PO (20:21)
[2019-06-27] MEDS: ATORVASTATIN 40 MG TAB PO (21:29)
[2019-06-27] MEDS: HEPARIN 5,000 UNIT/1 ML VIAL SC (21:38)
[2019-06-28] MEDS: ACCU-CHEK XX (02:00)
[2019-06-28] MEDS: SOD CHLORIDE 0.9% 1,000 ML IV ×3 (05:12→21:39)
[2019-06-28] MEDS: PIPER-TAZO 3.375 GM IV (PMX) 100 ML IVPB (05:14)
[2019-06-28] MEDS: ACETAMINOPHEN 325 MG TAB PO ×2 (05:23→20:12)
[2019-06-28 05:58] LABS: ADD MAN DIFF? NO
[2019-06-28 06:12] LABS: BASOPHIL # 0.1 10^3/ul (0.0-0.1); BASOPHILS % 0.8 % (0.0-2.0); EOSINOPHILS # 0.2 10^3/ul (0.0-0.5); EOSINOPHILS % 2.6 % (0.0-7.0); HEMATOCRIT 41.7 % (42.0-52.0); HEMOGLOBIN 12.6 g/dl (14.0-18.0); LYMPHOCYTES # 2.2 10^3/ul (0.8-2.9); LYMPHOCYTES % 28.4 % (15.0-51.0); MEAN CORPUSCULAR HEMOGLOBIN 26.4 pg (29.0-33.0); MEAN CORPUSCULAR HGB CONC 30.2 g/dl (32.0-37.0); MEAN CORPUSCULAR VOLUME 87.4 fl (82.0-101.0); MEAN PLATELET VOLUME 9.7 fl (7.4-10.4); MONOCYTE # 0.6 10^3/ul (0.3-0.9); MONOCYTES % 8.2 % (0.0-11.0); NEUTROPHIL # 4.6 10^3/ul (1.6-7.5); NEUTROPHILS % 59.4 % (39.0-77.0); PLATELET COUNT 341 10^3/UL (140-415); RED BLOOD COUNT 4.77 10^6/ul (4.70-6.10); RED CELL DISTRIBUTION WIDTH 13.8 % (11.5-14.5)
[2019-06-28 06:12] LABS: WHITE BLOOD COUNT 7.8 10^3/ul (4.8-10.8)
[2019-06-28 06:42] LABS: ANION GAP 5 (5-13); BLOOD UREA NITROGEN 15 mg/dl (7-20); CALCIUM 8.7 mg/dl (8.4-10.2); CARBON DIOXIDE 32 mmol/L (21-31); CHLORIDE 102 mmol/L (97-110); CREATININE 1.13 mg/dl (0.61-1.24); Estimated GFR > 60 mL/min (>60); GLUCOSE 147 mg/dl (70-220); MAGNESIUM 1.8 mg/dl (1.7-2.5); SODIUM 139 mmol/L (135-144)
[2019-06-28] MEDS: INSULIN ASPART [NOVOLOG] 3 ML PEN SC ×7 (08:00→20:18)
[2019-06-28] MEDS: HEPARIN 5,000 UNIT/1 ML VIAL SC ×2 (08:32→20:38)
[2019-06-28] MEDS: INSULIN GLARGINE [LANTus] (100 UNITS/ML) SYG SC ×2 (08:33→21:42)
[2019-06-28] MEDS: NICOTINE (21 MG/24 HR) PATCH TRANSDERM (08:34)
[2019-06-28] MEDS: TIOTROPIUM 18 MCG CAPSULE INHA DEV INH (08:34)
[2019-06-28] MEDS: HYDROCHLOROTHIAZIDE 12.5 MG CAP PO (13:00)
[2019-06-28] MEDS: CLINDAMYCIN 900 MG (PMX) 50 ML IVPB ×2 (14:48→21:29)
[2019-06-28] MEDS: LEVOFLOXACIN 500 MG TAB PO (15:46)
[2019-06-28] MEDS: ATORVASTATIN 40 MG TAB PO (20:31)
[2019-06-29] MEDS: ACCU-CHEK XX (02:00)
[2019-06-29 05:37] LABS: ADD MAN DIFF? NO
[2019-06-29 05:47] LABS: WHITE BLOOD COUNT 6.4 10^3/ul (4.8-10.8)
[2019-06-29 05:47] LABS: BASOPHIL # 0.1 10^3/ul (0.0-0.1); BASOPHILS % 0.9 % (0.0-2.0); EOSINOPHILS # 0.2 10^3/ul (0.0-0.5); EOSINOPHILS % 2.6 % (0.0-7.0); HEMATOCRIT 40.7 % (42.0-52.0); HEMOGLOBIN 12.6 g/dl (14.0-18.0); LYMPHOCYTES # 2.6 10^3/ul (0.8-2.9); LYMPHOCYTES % 40.7 % (15.0-51.0); MEAN CORPUSCULAR HEMOGLOBIN 26.9 pg (29.0-33.0); MEAN PLATELET VOLUME 9.6 fl (7.4-10.4); MONOCYTE # 0.5 10^3/ul (0.3-0.9); MONOCYTES % 8.4 % (0.0-11.0); NEUTROPHILS % 46.9 % (39.0-77.0); PLATELET COUNT 327 10^3/UL (140-415); RED BLOOD COUNT 4.68 10^6/ul (4.70-6.10); RED CELL DISTRIBUTION WIDTH 13.4 % (11.5-14.5)
[2019-06-29] MEDS: CLINDAMYCIN 900 MG (PMX) 50 ML IVPB ×3 (05:47→22:27)
[2019-06-29] MEDS: LEVOFLOXACIN 500 MG TAB PO (05:49)
[2019-06-29 06:12] LABS: ANION GAP 6 (5-13); BLOOD UREA NITROGEN 14 mg/dl (7-20); CALCIUM 8.9 mg/dl (8.4-10.2); CARBON DIOXIDE 27 mmol/L (21-31); CHLORIDE 106 mmol/L (97-110); CREATININE 1.13 mg/dl (0.61-1.24); Estimated GFR > 60 mL/min (>60); GLUCOSE 94 mg/dl (70-220); POTASSIUM 3.7 mmol/L (3.5-5.1); SODIUM 139 mmol/L (135-144)
[2019-06-29] MEDS: INSULIN ASPART [NOVOLOG] 3 ML PEN SC ×7 (08:00→21:00)
[2019-06-29] MEDS: ACETAMINOPHEN 325 MG TAB PO ×2 (08:18→15:32)
[2019-06-29] MEDS: HYDROCHLOROTHIAZIDE 12.5 MG CAP PO (08:18)
[2019-06-29] MEDS: INSULIN GLARGINE [LANTus] (100 UNITS/ML) SYG SC ×2 (08:21→22:40)
[2019-06-29] MEDS: HEPARIN 5,000 UNIT/1 ML VIAL SC ×2 (08:21→20:50)
[2019-06-29] MEDS: TIOTROPIUM 18 MCG CAPSULE INHA DEV INH (08:24)
[2019-06-29] MEDS: NICOTINE (21 MG/24 HR) PATCH TRANSDERM (08:25)
[2019-06-29] MEDS: SOD CHLORIDE 0.9% 1,000 ML IV (13:18)
[2019-06-29] MEDS: ATORVASTATIN 40 MG TAB PO (20:36)
[2019-06-30] MEDS: ACCU-CHEK XX (02:00)
[2019-06-30] MEDS: CLINDAMYCIN 900 MG (PMX) 50 ML IVPB ×3 (05:08→22:04)
[2019-06-30] MEDS: SOD CHLORIDE 0.9% 1,000 ML IV (05:09)
[2019-06-30] MEDS: LEVOFLOXACIN 500 MG TAB PO (05:09)
[2019-06-30 05:39] LABS: ADD MAN DIFF? NO
[2019-06-30 05:41] LABS: WHITE BLOOD COUNT 5.8 10^3/ul (4.8-10.8)
[2019-06-30 05:41] LABS: BASOPHIL # 0.1 10^3/ul (0.0-0.1); EOSINOPHILS # 0.2 10^3/ul (0.0-0.5); EOSINOPHILS % 3.3 % (0.0-7.0); HEMATOCRIT 41.5 % (42.0-52.0); HEMOGLOBIN 12.6 g/dl (14.0-18.0); LYMPHOCYTES # 2.2 10^3/ul (0.8-2.9); LYMPHOCYTES % 38.1 % (15.0-51.0); MEAN CORPUSCULAR HEMOGLOBIN 26.4 pg (29.0-33.0); MEAN CORPUSCULAR HGB CONC 30.4 g/dl (32.0-37.0); MEAN PLATELET VOLUME 9.3 fl (7.4-10.4); MONOCYTE # 0.5 10^3/ul (0.3-0.9); NEUTROPHIL # 2.8 10^3/ul (1.6-7.5); NEUTROPHILS % 48.7 % (39.0-77.0); PLATELET COUNT 341 10^3/UL (140-415); RED BLOOD COUNT 4.77 10^6/ul (4.70-6.10); RED CELL DISTRIBUTION WIDTH 13.7 % (11.5-14.5)
[2019-06-30 05:54] LABS: ANION GAP 3 (5-13); BLOOD UREA NITROGEN 17 mg/dl (7-20); CALCIUM 9.3 mg/dl (8.4-10.2); CARBON DIOXIDE 32 mmol/L (21-31); CHLORIDE 104 mmol/L (97-110); CREATININE 1.16 mg/dl (0.61-1.24); Estimated GFR > 60 mL/min (>60); GLUCOSE 173 mg/dl (70-220); PHOSPHORUS 4.7 mg/dl (2.5-4.9); POTASSIUM 4.9 mmol/L (3.5-5.1); SODIUM 139 mmol/L (135-144)
[2019-06-30 05:55] LABS: MAGNESIUM 1.8 mg/dl (1.7-2.5)
[2019-06-30] MEDS: HYDROCHLOROTHIAZIDE 12.5 MG CAP PO (08:12)
[2019-06-30] MEDS: HEPARIN 5,000 UNIT/1 ML VIAL SC ×2 (08:15→21:42)
[2019-06-30] MEDS: INSULIN ASPART [NOVOLOG] 3 ML PEN SC ×7 (08:15→21:00)
[2019-06-30] MEDS: INSULIN GLARGINE [LANTus] (100 UNITS/ML) SYG SC ×2 (08:16→21:43)
[2019-06-30] MEDS: TIOTROPIUM 18 MCG CAPSULE INHA DEV INH (09:00)
[2019-06-30] MEDS: NICOTINE (21 MG/24 HR) PATCH TRANSDERM (09:00)
[2019-06-30] MEDS: ATORVASTATIN 40 MG TAB PO (21:37)
[2019-06-30] MEDS: ACETAMINOPHEN 325 MG TAB PO (21:52)
[2019-07-01] MEDS: ACCU-CHEK XX (02:00)
[2019-07-01] MEDS: CLINDAMYCIN 900 MG (PMX) 50 ML IVPB (06:17)
[2019-07-01] MEDS: LEVOFLOXACIN 500 MG TAB PO (06:17)
[2019-07-01] MEDS: INSULIN ASPART [NOVOLOG] 3 ML PEN SC ×4 (08:00→12:00)
[2019-07-01] MEDS: INSULIN GLARGINE [LANTus] (100 UNITS/ML) SYG SC (08:44)
[2019-07-01] MEDS: NICOTINE (21 MG/24 HR) PATCH TRANSDERM (09:00)
[2019-07-01] MEDS: TIOTROPIUM 18 MCG CAPSULE INHA DEV INH (09:00)
[2019-07-01] MEDS: HYDROCHLOROTHIAZIDE 12.5 MG CAP PO (10:13)
[2019-07-01] MEDS: HEPARIN 5,000 UNIT/1 ML VIAL SC (10:15)
== END 2019-07-01 13:45 | disposition home or self-care (01) | DRG 623 ==
LOC: E/R 11:05 → 2NE 13:56
PROC: 0KBV0ZZ Excision of Right Foot Muscle, Open Approach (ICD-10-PCS; 2019-06-27 07:30)
PROC: 0QTQ0ZZ Resection of Right Toe Phalanx, Open Approach (ICD-10-PCS; 2019-06-27 07:30)
PROC: 0JBR0ZZ Excision of Left Foot Subcutaneous Tissue and Fascia, Open Approach (ICD-10-PCS; 2019-06-27 07:30)
PROC: 0JBR0ZZ Excision of Left Foot Subcutaneous Tissue and Fascia, Open Approach (ICD-10-PCS; principal; 2019-06-27 07:57)
PROC: 0JBQ0ZZ Excision of Right Foot Subcutaneous Tissue and Fascia, Open Approach (ICD-10-PCS; 2019-06-27 07:57)
DX: E11.69 Type 2 diabetes mellitus with other specified complication (principal); M86.8X7 Other osteomyelitis, ankle and foot; Z68.41 Body mass index [BMI] 40.0-44.9, adult; E11.621 Type 2 diabetes mellitus with foot ulcer; E11.65 Type 2 diabetes mellitus with hyperglycemia; E11.42 Type 2 diabetes mellitus with diabetic polyneuropathy; E66.01 Morbid (severe) obesity due to excess calories; Z71.3 Dietary counseling and surveillance; L97.511 Non-pressure chronic ulcer of other part of right foot limited to breakdown of skin; I10 Essential (primary) hypertension; F20.9 Schizophrenia, unspecified; L97.529 Non-pressure chronic ulcer of other part of left foot with unspecified severity; F15.90 Other stimulant use, unspecified, uncomplicated; J44.9 Chronic obstructive pulmonary disease, unspecified; F17.210 Nicotine dependence, cigarettes, uncomplicated; Z89.422 Acquired absence of other left toe(s); Z79.4 Long term (current) use of insulin; Z89.411 Acquired absence of right great toe; Z89.412 Acquired absence of left great toe
CPT/HCPCS: 71045; 73630; 73630-LT; 73718; 80048; 80053; 80061; 81003; 82962; 83036; 83605; 83735; 84100; 84443; 84484; 85025; 85610; 85651; 85730; 86140; 87040-91; 87070; 87075; 87102; 88304; 88311; 93922; 97110; 97116; 97161; 97530; 99285-25